=== PATIENT | male | born 2000 | race Caucasian/White ===

== ENCOUNTER 2018-01-14 19:06 | Emergency (ER) | payer BC ==
[~2018-01-14] VITALS: Ht 170.2 cm; Wt 106.6 kg
[~2018-01-14 19:06] MED LIST: ACET500 PO; AMOX250CH PO; AMOX500 PO; AMOX50SU PO; AZIT250 PO; BENADRYL; Bactrim Ds Tab1 EACH PO; CODACE30 PO; CODACEE120 PO; Colace100 MG PO; IBUP200 PO; IBUP400 PO; METPHE5; MOTRIN; Norco 5-325 Ta1 EACH PO; ONDA4 PO; PENVK500 PO; RXAMOX250S PO; RXAMOX500 PO; RXCODACET PO
[2018-01-14] MEDS ORDERED: NAPR550 PO (19:43)
== END 2018-01-14 19:48 | disposition home or self-care (01) ==
LOC: ER 19:06
DX: M54.5 Low back pain (principal); J45.909 Unspecified asthma, uncomplicated
CPT/HCPCS: 99282

== ENCOUNTER 2018-08-29 16:36 | Emergency (ER) | payer BC, OTHER ==
[~2018-08-29] VITALS: Ht 170.2 cm; Wt 104.3 kg
[~2018-08-29 16:36] MED LIST changes: +NAPR550 PO
[2018-08-29] MEDS ORDERED: LORA1 PO (16:49)
[2018-08-29] MEDS ORDERED: SERT100 PO (16:49)
[2018-08-29] MEDS ORDERED: CEPH500 PO (17:24)
== END 2018-08-29 17:28 | disposition home or self-care (01) ==
LOC: ER 16:36
DX: L03.317 Cellulitis of buttock (principal); Z79.899 Other long term (current) drug therapy; Z87.891 Personal history of nicotine dependence
CPT/HCPCS: 99282

== ENCOUNTER 2018-10-25 14:05 | Emergency (ER) | payer BC, OTHER ==
[~2018-10-25] VITALS: Ht 170.2 cm; Wt 113.4 kg
[~2018-10-25 14:05] MED LIST changes: +CEPH500 PO; +LORA1 PO; +SERT100 PO
[2018-10-25] MEDS ORDERED: Ciprodex Otic7.5 ML LEFTEAR (14:42)
== END 2018-10-25 15:05 | disposition home or self-care (01) ==
LOC: ER 14:05
DX: H60.92 Unspecified otitis externa, left ear (principal); Z87.891 Personal history of nicotine dependence
CPT/HCPCS: 99282